=== PATIENT | female | born 1975 | race Caucasian/White ===

== ENCOUNTER → 2016-08-21 | Outpatient (CLI) | payer OTHER ==
--- NOTE | 2016-08-21 13:59 | WOMENS IMAGING REPORT ---
EXAM DESCRIPTION: U/S PELVIS NON-OB COMPLETED DATE/TIME: 08/21/2016 12:44 pm REASON FOR STUDY: Z12.31 ROUTINE SCREENING MAMMO N85.2HYPERTROPHY OF UTERUS Z12.31 ENCNTR SCREEN MA MMOGRAM FOR MALIGNANT NEOPLASM OF BEKAH N85.2 HYPERTROPHY OF UTERUS COMPARISON: None. TECHNIQUE: Dynamic and static grayscale images acquired of the pelvis via transabdominal approach an d recorded on PACS. Additional selected color Doppler and spectral images recorded. LIMITATIONS: None. FINDINGS: UTERUS: Contour normal. No mass. Uterus is 13.5 x 6 x 7 cm in size. No fibroids ENDOMETRIAL STRIPE: No focal or generalized thickening. No masses. Endometrial stripe 9 mm in thickn ess CERVIX: No nabothian cysts. RIGHT OVARY: No abnormal masses. 3.1 x 2.5 x 3.1 cm in size RIGHT OVARY DOPPLER: Normal color flow LEFT OVARY: No abnormal masses. 2.8 x 2.3 x 2.6 cm in size LEFT OVARY DOPPLER: Normal color flow. FREE FLUID: None noted. OTHER: No other significant finding. TECHNICAL DOCUMENTATION: JOB ID: [id number] [employer]- All Rights Reserved
--- NOTE | 2016-08-21 17:07 | WOMENS IMAGING REPORT ---
EXAM DESCRIPTION: BILAT SCREENING MAMMO W/CAD COMPLETED DATE/TIME: 08/21/2016 10:51 am REASON FOR STUDY: Z12.31 ROUTINE SCREENING MAMMO N85.2HYPERTROPHY OF UTERUS Z12.31 ENCNTR SCREEN MA MMOGRAM FOR MALIGNANT NEOPLASM OF BEKAH N85.2 HYPERTROPHY OF UTERUS COMPARISON: Baseline TECHNIQUE: Standard craniocaudal and mediolateral oblique views of each breast recorded using digita l acquisition. LIMITATIONS: None. FINDINGS: No masses, calcifications or architectural distortion. No areas of suspicion. Read with the assistance of CAD. .[facility] - R2 Cenova Version 1.3 .[facility] - R2 Cenova Version 1.3 .[facility] - R2 Cenova Version 2.4 .[facility] [place] - R2 Cenova Version 2.4 .[facility] - R2 Roller Checker Version 9.2 BREAST DENSITY: c. The breasts are heterogeneously dense, which may obscure small masses. BIRAD: 1 NEGATIVE RECOMMENDATION: ROUTINE SCREENING Please consider bilateral screening tomosynthesis in August 2017, given heterogeneously dense tissue COMMENT: PATIENT NOTIFIED BY LETTER. [employer] recommends an annual screening mammogram for women aged 40 years or over. Each patient will receive a reminder prior to the anniversary date of her mammogram. [employer] ([employer]) has developed recommendations for screening MRI of the breast s in certain patient populations, to be used in conjunction with mammography. Breast MRI surveillanc e may be appropriate for women with more than 20% lifetime risk of developing breast cancer as deter mined by genetic testing, significant family history of the disease, or history of mantle radiation f or Hodgkins Disease. [employer] Practice Guidelines 2008. TECHNICAL DOCUMENTATION: FINDING NUMBER: (1) ASSESSMENT: (1) JOB ID: [id number] [employer] acquired by [employer]- All Rights Reserved
== END ==
LOC: WI 10:35
PROVIDERS: ATTEND Family Medicine
DX: Z12.31 Encounter for screening mammogram for malignant neoplasm of breast (principal); N85.2 Hypertrophy of uterus
CPT/HCPCS: 76856; G0202; 77067